=== PATIENT | female | born 1965 | race Two or more races ===

== ENCOUNTER 2017-04-30 07:30 | Emergency (ER) | payer OTHER ==
--- NOTE | 2017-04-30 07:55 | ED Physician Documentation ---
General Adult - HISTORIAN Historian: patient - HPI Stated Complaint: chest pain Chief Complaint: General Adult Onset: days ago (1) Timing: still present Severity: moderate Further Comments: yes (Pt is a 51 yo female with hx HTN who has had chest pain intermittently since yesterday. Pain radiates to R shoulder. No n/v, diaphoresis. Pt has had episodes like this over the past year. Pt has family hx CAD, but no personal hx apart from HTN. Pt takes Losartan/HCTZ 100/12.5 for BP.) - ROS CONST: no problems EYES/ENT: none CVS/RESP: none GI/: none MS/SKIN/LYMPH: none - PAST HX Past History: hypertension Other History: none Allergies/Adverse Reactions: Allergies Allergy/AdvReac Type Severity Reaction Status Date / Time No Known Drug Allergies Allergy Verified 04/30/17 07:56 - SOCIAL HX Smoking History: non-smoker - FAMILY HX Family History: Yes (HTN) - VITAL SIGNS Vital Signs: Vital Signs Temp Pulse Resp BP Pulse Ox 136/83 01/28/14 15:54 - REVIEWED ASSESSMENTS Nursing Assessment Reviewed: Yes Vitals Reviewed: Yes Progress - Progress Progress: ASA 325 po x 1 no chest pain in ER - EKG/XRAY/CT EKG: NSR (HR=92; normal FL interval; normal axis.) XRAY: chest (neg) General Adult Physical Exam - PHYSICAL EXAM GENERAL APPEARANCE: mild distress (anxious) EENT: pharynx normal NECK: normal inspection, supple RESPIRATORY: no resp distress, chest non-tender, breath sounds normal CVS: reg rate & rhythm, heart sounds normal ABDOMEN: soft, no organomegaly, normal bowel sounds BACK: normal inspection SKIN: warm/dry, normal color EXTREMITIES: non-tender, normal range of motion, no evidence of injury NEURO: oriented X3, motor nml, sensation nml Discharge Clincal Impression: Non-cardiac chest pain Referrals: Dasha Munson MD [Primary Care Provider] - Condition: Good Disposition: 01 HOME, SELF-CARE Decision to Admit: NO Decision Time: 09:14
[2017-04-30] MEDS: ASPIRIN 81 MG CHEW TAB PO ONE (07:59)
[2017-04-30 08:23] LABS: BASOPHILS % 1.1 (0.0-1.5); EOSINOPHILS % 2.6 % (0.0-6.8); MEAN CORPUSCULAR VOLUME 90.2 fl (80.0-100.0); MONOCYTES % 3.6 % (0.0-11.0); NEUTROPHILS # 1.9 # k/uL (1.4-7.7)
[2017-04-30 08:46] LABS: eGFR (African) > 60; eGFR (Non-African) > 60
[2017-04-30 09:20] VITALS: BP 139/96
--- NOTE | 2017-04-30 14:51 | Diagnostic Imaging Report ---
VANDANA VALDEZ [facility] [id number] [facility] [address] [place] [address]. [id number] Report Submission Date: Apr 30, 2017 8:16:40 AM CDT Patient Study Name: MAGO PEREYRA Date: Apr 30, 2017 8:00:15 AM CDT Modality Type: CR Gender: F Description: CHEST : 63 Institution: [facility] Physician: VANDANA VALDEZ Examination: Portable chest History: Chest discomfort Comparison exam: None provided Findings: Single view of the chest demonstrates a normal cardiac and mediastinal silhouette. Lung benavides without focal infiltrate. No effusion. Osseous structures are appropriate for age. Impression: No acute pulmonary process. Electronically signed on Apr 30, 2017 8:16:40 AM CDT by: Valerio JAQUEZ
== END 2017-04-30 09:05 | disposition home or self-care (01) ==
LOC: ED 07:30
DX: R07.89 Other chest pain (principal)
CPT/HCPCS: 71010; 80053; 82550; 84484; 85025; 99283; S1016